=== PATIENT | female | born 1940 | race Caucasian/White ===

== ENCOUNTER 2018-08-28 13:10 | Inpatient (IN) | payer MEDICARE, MEDICAID | END 2018-09-11 16:05 | disposition home health service (06) | LOC: ER 13:10 → ED HOLD 16:22 → PCU 3S 17:30 | DX: A41.9 Sepsis, unspecified organism (principal); J18.1 Lobar pneumonia, unspecified organism; J96.01 Acute respiratory failure with hypoxia; J44.1 Chronic obstructive pulmonary disease with (acute) exacerbation; E87.1 Hypo-osmolality and hyponatremia; F17.200 Nicotine dependence, unspecified, uncomplicated ==

== ENCOUNTER 2019-03-26 13:14 | Emergency (ER) | payer MEDICARE, MEDICAID ==
[~2019-03-26] VITALS: Ht 149.9 cm; Wt 52.3 kg
[~2019-03-26 13:14] MED LIST: ALBU18HF2 INH; ASPI-1130 PO; ATOR-2 PO; FENT1PAT7 TOP; FLUO-81 PO; GABA-530 PO; HYPR10GE4 EACHEYE; LACT1CAP26 PO; MINE15DR4 EACHEYE; TIOT4MIS2 INH
[2019-03-26] MEDS ORDERED: metoclopramide 5 mg/ml inj IV ONE (13:30)
[2019-03-26] MEDS ORDERED: LORazepam 2 mg/ml vial IV ONE (13:30)
[2019-03-26] MEDS ORDERED: diphenhydrAMINE 50 mg/ml inj IV ONE (13:30)
[2019-03-26] MEDS ORDERED: normal saline 1000ML IV soln IVB ONE ×2 (13:30→15:40)
[2019-03-26 13:48] LABS: BASOPHILS # (AUTO) 0.1 X10'3 (0-0.2); BASOPHILS % (AUTO) 0.8 % (0-1); EOSINOPHILS % (AUTO) 0.6 % (0-6); HEMATOCRIT 37.5 % (35.0-45.0); HEMOGLOBIN 12.9 g/dl (12.0-16.0); LYMPHOCYTES % (AUTO) 10.6 % (21-51); MEAN CORPUSCULAR HEMOGLOBIN 31.1 PG (27.0-31.0); MEAN CORPUSCULAR HGB CONC 34.4 g/dL (33.0-36.5); MEAN CORPUSCULAR VOLUME 90.2 FL (78-98); MEAN PLATELET VOLUME 7.7 FL (7.4-10.4); MONOCYTES # (AUTO) 0.4 X10'3 (0-0.9); MONOCYTES % (AUTO) 4.1 % (2-12); NEUTROPHILS # (AUTO) 7.5 X10'3 (1.8-7.7); NEUTROPHILS % (AUTO) 83.9 % (42-75); PLATELET COUNT 230 X10'3 (140-440); RED BLOOD COUNT 4.16 X10'6 (4.20-5.60)
[2019-03-26 14:05] LABS: ALANINE AMINOTRANSFERASE 31 U/L (12-78); ALBUMIN 3.6 G/DL (3.4-5.0); ALBUMIN/GLOBULIN RATIO 1.2 (1.1-1.5); ALKALINE PHOSPHATASE 117 IU/L (46-116); ANION GAP 8 (8-16); ASPARTATE AMINO TRANSFERASE 21 U/L (10-37); BILIRUBIN,TOTAL 0.5 MG/DL (0.1-1.0); BLOOD UREA NITROGEN 4 MG/DL (7-18); BUN/CREATININE RATIO 6.1 (6.6-38.0); CALCIUM 8.6 MG/DL (8.5-10.1); CHLORIDE 101 MMOL/L (99-107); CREATININE 0.66 MG/DL (0.40-0.90); GLUCOSE 110 MG/DL (70-104); POTASSIUM 3.8 MMOL/L (3.5-5.1); SODIUM 135 MMOL/L (135-145); TOTAL CARBON DIOXIDE 25.9 MMOL/L (24-32); TOTAL PROTEIN 6.7 G/DL (6.4-8.2); eGFR 87 ML/MIN
[2019-03-26 14:07] LABS: PARTIAL THROMBOPLASTIN TIME 29 SECONDS (22-32)
[2019-03-26 14:13] LABS: MAGNESIUM 1.8 MG/DL (1.5-2.4); TROPONIN I < 0.04 NG/ML (0.0-0.05)
--- NOTE | 2019-03-26 14:21 | NUR ---
ICE PACK TO LEFT EYE; REPOSITIONED AND PILLOW PLACED UNDER HER LEGS
[2019-03-26] MEDS ORDERED: naphazoline/pheniramine eye 1 DROP BOTTLE LEFTEYE PRN (14:50)
[2019-03-26] MEDS ORDERED: AMOX-580 PO (15:38)
[2019-03-26] MEDS ORDERED: ONDA4TAB12 PO ×2 (15:38→15:46)
[2019-03-26] MEDS ORDERED: fentaNYL/PF 50MCG/1 ML 2ML syringe IV ONE (15:40)
[2019-03-26] MEDS ORDERED: ondansetron/PF 4mg/2ml inj IV ONE (15:40)
[2019-03-26] MEDS ORDERED: gentamicin 0.3% ophthalmic drops 5ML LEFTEYE ONE (15:55)
[2019-03-26 16:28] LABS: CLARITY,URINE CLEAR (Clear); COLOR,URINE STRAW (Yellow); GLUCOSE, URINE NEGATIVE (Neg); KETONES,URINE NEGATIVE (Neg); LEUKOCYTE ESTERASE ,URINE NEGATIVE (Neg); NITRITES, URINE NEGATIVE (Neg); OCCULT BLOOD,URINE NEGATIVE (Neg); PH,URINE 7.5 (4.8-8.0); PROTEIN,URINE NEGATIVE (Neg); UROBILINOGEN,URINE 0.2 E.U/dL (0.2-1.0)
[2019-03-26 16:38] LABS: UA COLLECTION TYPE STRAIGHT CATH
[2019-03-26 16:51] VITALS: BP 127/74
== END 2019-03-26 16:57 | disposition home or self-care (01) ==
LOC: ER 13:14
DX: R10.13 Epigastric pain (principal); R11.2 Nausea with vomiting, unspecified; H10.9 Unspecified conjunctivitis; E78.00 Pure hypercholesterolemia, unspecified; J44.9 Chronic obstructive pulmonary disease, unspecified; G89.29 Other chronic pain; Z88.5 Allergy status to narcotic agent; Z88.6 Allergy status to analgesic agent; Z88.8 Allergy status to other drugs, medicaments and biological substances; Z79.82 Long term (current) use of aspirin; Z79.899 Other long term (current) drug therapy
CPT/HCPCS: 36415; 71045; 80053; 81003; 83735; 83880; 84145; 84484; 85025; 85610; 85730; 96361; 96374; 96375; 99284; J1200; J2060; J2765; J7030; P9612; 93005